=== PATIENT | female | born 1980 | race Caucasian/White ===

== ENCOUNTER 2024-07-14 09:00 | Outpatient (CLI) | payer OTHER, SELFPAY | END 2024-07-14 09:01 | disposition home or self-care (01) | LOC: NFLDREF 07-20 03:19 | PROVIDERS: PCP Family Medicine; Referring Provider Family Medicine; Visit Provider Family Medicine | DX: E78.5 Hyperlipidemia, unspecified (principal) | CPT/HCPCS: 80053; 80061 ==

== ENCOUNTER 2024-07-19 13:13 | Outpatient (CLI) | payer OTHER, SELFPAY ==
[2024-07-21 21:56] LABS: HPV Source Cervical/Vag; HPV, High Risk by TMA Not Detected
== END 2024-07-19 13:14 | disposition home or self-care (01) ==
PROVIDERS: PCP Family Medicine; Visit Provider Family Medicine
DX: Z12.4 Encounter for screening for malignant neoplasm of cervix (principal); Z11.51 Encounter for screening for human papillomavirus (HPV)
CPT/HCPCS: 87624; 87625; 88141; 88142